=== PATIENT | female | born 1990 | race African-American/Black ===

== ENCOUNTER 2017-02-27 05:44 | Emergency (ER) | payer MEDICAID, OTHER ==
[~2017-02-27] VITALS: Ht 157.5 cm; Wt 55.0 kg
[2017-02-27 05:46] VITALS: BP 102/54; PULSE 91; RESP 18; TEMP 98.2; O2SAT 99
--- NOTE | 2017-02-27 06:13 | PD ---
HPI . Forehead laceration Chief Complaint: Skin Problem Time Seen by Provider: 05:46 Travel History International Travel<30 days: No Contact w/Intl Traveler<30days: No Traveled to known affect area: No History of Present Illness HPI Patient presents with a forehead laceration. She is in police custody. She was reportedly arrested and then struck her head on the car door. The [employer] police reports no loss of consciousness. He states that she needs to be medically cleared to go to detention. The patient is not able to contribute to her history. PFSH Past Medical History Diminished Hearing: No Genitourinary: Yes (frequent utis; one episode of renal failure in 2013) Seizures: Yes (last 2014, pt. states febrile) : 3 Para: 2 Miscarriage: 1 Tubal Ligation: Yes Past Surgical History Gynecologic Surgery: Yes Social History Alcohol Use: No Tobacco Use: Yes (09/27 ppd) Substance Use: Yes (MARIJUANA) Allergies-Medications (Allergen,Severity, Reaction): Coded Allergies: Tramadol (Verified Allergy, Severe, Seizures, 08/27/16) Lortab (Unverified Adverse Reaction, Unknown, Nausea/Vomiting, 08/27/16) Uncoded Allergies: OYSTERS (Allergy, Severe, 02/16/14) Reported Meds & Prescriptions Reported Meds & Active Scripts Active No Active Prescriptions or Reported Medications Review of Systems ROS Limitations: Intoxication Physical Exam Narrative GENERAL: Patient appears intoxicated. SKIN: Warm and dry. She has a superficial laceration on the forehead. There is no active bleeding. HEAD: Atraumatic. Normocephalic. EYES: Pupils equal and round. Extraocular movements are intact. NECK: Trachea midline. Neck is supple. CARDIOVASCULAR: Regular rate and rhythm. RESPIRATORY: No accessory muscle use. MUSCULOSKELETAL: No obvious deformities. No edema. NEUROLOGICAL: Patient is moving all 4 extremities equally. PSYCHIATRIC: Unable to assess. Data Data Last Documented VS Vital Signs Date Time Temp Pulse Resp B/P Pulse Ox O2 Delivery O2 Flow Rate FiO2 02/27/17 05:46 98.2 91 18 102/54 99 MDM Medical Decision Making Medical Screen Exam Complete: Yes Emergency Medical Condition: Yes Differential Diagnosis Differential diagnosis includes but is not limited to skin laceration, muscular laceration, tendon laceration, neurovascular laceration. Narrative Course Patient presents with a laceration. It is superficial and does not need closure. She had no loss of consciousness with this injury. She is stable to go to detention. Diagnosis Primary Impression: Forehead laceration Qualified Code: S01.81XA - Forehead laceration, initial encounter Patient Instructions: General Instructions, Facial Laceration (ED) Departure Forms: Tests/Procedures Scripts No Active Prescriptions or Reported Meds Disposition: [address] LAW ENFORCEMNT Condition: Stable Gloria Mukherjee MD Feb 27, 2017 06:13
== END 2017-02-27 06:25 ==
LOC: NEPC 05:44
DX: S01.81XA Laceration without foreign body of other part of head, initial encounter (principal); W22.8XXA Striking against or struck by other objects, initial encounter; Y93.89 Activity, other specified; Y92.9 Unspecified place or not applicable
CPT/HCPCS: 99283